=== PATIENT | female | born 1975 | race Caucasian/White ===

== ENCOUNTER → 2017-03-21 | Outpatient (CLI) | payer OTHER ==
--- NOTE | 2017-03-21 10:49 | REP ---
Clinical: Pain. Comparison: 04/03/2006 . Technique: AP, lateral, bilateral oblique views right foot . Findings: Minimal age-related changes noted primarily involving the first metatarsophalangeal and interphalangeal joint with increased sclerosis at the articular surface. The osseous structures and joint spaces are intact and there is no evidence for acute fracture or dislocation. Surrounding soft tissues are unremarkable. No subcutaneous emphysema or radiodense foreign body. Impression: Minimal age-related changes primarily involving the first toe. No acute fracture or dislocation. Signed by Parviz Rich MD 03/21/2017 10:42 A
== END ==
LOC: M WUC 10:20
PROVIDERS: ATTEND Physician Assistant
DX: M79.671 Pain in right foot (principal); M19.071 Primary osteoarthritis, right ankle and foot

== ENCOUNTER → 2017-07-15 | Outpatient (CLI) | payer OTHER | LOC: M RAD 17:14 | DX: S90.31XA Contusion of right foot, initial encounter (principal); X58.XXXA Exposure to other specified factors, initial encounter; Y92.9 Unspecified place or not applicable | CPT/HCPCS: 73630 ==

== ENCOUNTER 2020-09-04 23:41 | Emergency (ER) | payer OTHER ==
[~2020-09-04] VITALS: Ht 165.1 cm; Wt 69.7 kg
[2020-09-04 23:42] VITALS: BP 140/82
[2020-09-04] MEDS ORDERED: ADDE20CA3 (23:48)
[2020-09-04] MEDS ORDERED: IBUP1TAB7 PO (23:51)
[2020-09-05] MEDS ORDERED: LIDOCAINE W/EPINEPHRINE 1% 20ML VIAL SC ONE (00:20)
[2020-09-05] MEDS ORDERED: AUGMENTIN 875 MG TAB PO ONE (00:20)
[2020-09-05] MEDS ORDERED: AUGM875T28 PO (01:09)
== END 2020-09-05 01:20 | disposition home or self-care (01) ==
LOC: M ED 23:41
DX: S01.81XA Laceration without foreign body of other part of head, initial encounter (principal); S01.311A Laceration without foreign body of right ear, initial encounter; W54.0XXA Bitten by dog, initial encounter; Y92.009 Unspecified place in unspecified non-institutional (private) residence as the place of occurrence of the external cause; Y93.9 Activity, unspecified; Y99.9 Unspecified external cause status; F90.0 Attention-deficit hyperactivity disorder, predominantly inattentive type

== ENCOUNTER → 2020-10-05 | Outpatient (CLI) | payer OTHER ==
[~2020-10-05] MED LIST: ADDE20CA3; AUGM875T28 PO; IBUP1TAB7 PO
--- NOTE | 2020-10-06 02:10 | REP ---
INDICATION: PAIN COMPARISON: None. TECHNIQUE: Five views of the right hemithorax. FINDINGS: Multiple views of the hemithorax demonstrates no acute rib fracture/injury or pathology. IMPRESSION: Normal rib series. <Electronically signed by Parviz Rich > 10/06/20 [id number]
== END ==
LOC: M WUC 13:48
PROVIDERS: ATTEND Family Medicine
DX: R07.81 Pleurodynia (principal)

== ENCOUNTER 2020-10-13 21:37 | Emergency (ER) | payer OTHER ==
[~2020-10-13] VITALS: Ht 167.6 cm; Wt 69.1 kg
[2020-10-13 21:38] VITALS: BP 128/84
[2020-10-14] MEDS ORDERED: LIDOCAINE 2% MDV 20ML VIAL SC ONE (00:15)
--- NOTE | 2020-10-14 01:47 | REPVR ---
PROCEDURE INFORMATION: Exam: XR Right Foot Exam date and time: 10/14/2020 12:14 AM Age: 45 years old Clinical indication: Other: Axe to top of foot; Additional info: Axe to top foot TECHNIQUE: Imaging protocol: XR Right foot. Views: 3 or more views. COMPARISON: 1. CR Foot, complete 2017-07-15 17:37 2. MA FOOT COMPLETE 2017-03-21 10:32 FINDINGS: Bones/joints: Degenerative spurring in the midfoot. No acute fracture or dislocation. Couple tiny punctate calcific densities adjacent to the medial cuneiform metatarsal joint on the lateral view, suspect chronic versus tiny chip fracture. Soft tissues: Mild soft tissue swelling. IMPRESSION: Couple tiny punctate calcific densities adjacent to the medial cuneiform metatarsal joint on the lateral view, suspect chronic versus tiny chip fracture. Electronically signed by: Dayron Leyva On 10/14/2020 01:46:19 AM
== END 2020-10-14 02:04 | disposition home or self-care (01) ==
LOC: M ED 21:37
DX: S91.311A Laceration without foreign body, right foot, initial encounter (principal); W27.0XXA Contact with workbench tool, initial encounter; Y92.009 Unspecified place in unspecified non-institutional (private) residence as the place of occurrence of the external cause; Y93.9 Activity, unspecified; Y99.9 Unspecified external cause status; F17.200 Nicotine dependence, unspecified, uncomplicated

== ENCOUNTER → 2021-02-16 | Outpatient (CLI) | payer OTHER ==
--- NOTE | 2021-02-16 18:52 | REP ---
INDICATION: SWELLING,MASS,LUMP LT ARM. COMPARISON: None. TECHNIQUE: Real-time sonographic evaluation of left forearm performed at the site of the palpable lump. FINDINGS: No fluid collection or hematoma is seen. No mass is seen. IMPRESSION: No fluid collection, mass or hematoma at the site of the palpable lump in the left lateral forearm. <Electronically signed by Josef Chaudhari > 02/16/21 [id number]
== END ==
LOC: M RAD 13:28
PROVIDERS: ATTEND Surgery
DX: R22.32 Localized swelling, mass and lump, left upper limb (principal)

== ENCOUNTER → 2021-07-14 | Outpatient (REF) | payer OTHER | LOC: M LAB REF 16:10 | PROVIDERS: ATTEND Obstetrics & Gynecology | DX: R30.0 Dysuria (principal) ==

== ENCOUNTER → 2021-07-27 | Outpatient (CLI) | payer OTHER | LOC: M WHC 12:05 | PROVIDERS: ATTEND Family Medicine | DX: R31.0 Gross hematuria (principal); N32.89 Other specified disorders of bladder ==

== ENCOUNTER → 2021-11-16 | Outpatient (CLI) | payer OTHER | LOC: M LABSMTC 10:49 | PROVIDERS: ATTEND Specialist | DX: Z01.812 Encounter for preprocedural laboratory examination (principal); Z11.52 Encounter for screening for COVID-19; R31.0 Gross hematuria ==

== ENCOUNTER 2022-05-05 03:55 | Emergency (ER) | payer OTHER ==
[~2022-05-05] VITALS: Ht 167 cm; Wt 68.7 kg
[2022-05-05] MEDS ORDERED: LIDOCAINE 5% (LIDODERM) PATCH TD ONE (07:30)
[2022-05-05] MEDS ORDERED: KETOROLAC 30 MG/ML 1ML VIAL IM ONE ×2 (07:30→07:50)
[2022-05-05] MEDS ORDERED: LIDO5DIS41 TOP (09:48)
[2022-05-05] MEDS ORDERED: MEDR4PAK PO (09:49)
[2022-05-05] MEDS ORDERED: PERC5TAB12 PO (09:52)
[2022-05-05 10:29] VITALS: BP 123/72
== END 2022-05-05 10:31 | disposition home or self-care (01) ==
LOC: M ED 03:55
DX: S32.010A Wedge compression fracture of first lumbar vertebra, initial encounter for closed fracture (principal); M51.27 Other intervertebral disc displacement, lumbosacral region; W19.XXXA Unspecified fall, initial encounter; Y93.89 Activity, other specified; Y99.0 Civilian activity done for income or pay
CPT/HCPCS: 72128; 72131; 73521; 96372; 99284; J1885

== ENCOUNTER → 2022-05-30 | Outpatient (CLI) | payer OTHER ==
[~2022-05-30] MED LIST changes: +LIDO5DIS41 TOP; +MEDR4PAK PO; +PERC5TAB12 PO
== END ==
LOC: M SOG 10:54
PROVIDERS: ATTEND Orthopaedic Surgery
DX: M48.56XA Collapsed vertebra, not elsewhere classified, lumbar region, initial encounter for fracture (principal)

== ENCOUNTER → 2022-07-11 | Outpatient (CLI) | payer OTHER | LOC: M SOG 07:59 | PROVIDERS: ATTEND Orthopaedic Surgery | DX: M48.56XA Collapsed vertebra, not elsewhere classified, lumbar region, initial encounter for fracture (principal) ==

== ENCOUNTER → 2022-07-14 | Outpatient (CLI) | payer OTHER | LOC: M WHC 08:17 | PROVIDERS: ATTEND Obstetrics & Gynecology | DX: Z12.31 Encounter for screening mammogram for malignant neoplasm of breast (principal) ==

== ENCOUNTER → 2022-09-13 | Outpatient (CLI) | payer OTHER | LOC: M SOG 11:10 | PROVIDERS: ATTEND Orthopaedic Surgery | DX: M48.56XD Collapsed vertebra, not elsewhere classified, lumbar region, subsequent encounter for fracture with routine healing (principal); M47.816 Spondylosis without myelopathy or radiculopathy, lumbar region ==

== ENCOUNTER → 2023-11-14 | Outpatient (CLI) | payer BC | LOC: MERGE 12:54 → M WHC 12:54 | PROVIDERS: ATTEND Advanced Practice Midwife | DX: Z12.31 Encounter for screening mammogram for malignant neoplasm of breast (principal); Z53.9 Procedure and treatment not carried out, unspecified reason ==

== ENCOUNTER → 2023-11-14 | Outpatient (CLI) | payer BC, OTHER | LOC: M WHC 13:30 | PROVIDERS: ATTEND Advanced Practice Midwife | DX: Z12.31 Encounter for screening mammogram for malignant neoplasm of breast (principal) ==